=== PATIENT | male | born 1935 | race Two or more races ===

== ENCOUNTER 2019-01-23 07:52 | Outpatient (CLI) | payer OTHER | END 2019-01-23 15:51 | disposition home or self-care (01) | LOC: TOM 07:52 | DX: N40.0 Benign prostatic hyperplasia without lower urinary tract symptoms (principal) ==

== ENCOUNTER 2021-01-17 07:08 | Day surgery (SDC) | payer OTHER | END 2021-01-17 12:10 | disposition home or self-care (01) | LOC: AMB-ENDOS 07:08 | PROVIDERS: ATTEND Surgery | DX: D12.2 Benign neoplasm of ascending colon (principal); D12.4 Benign neoplasm of descending colon; D12.5 Benign neoplasm of sigmoid colon; D12.8 Benign neoplasm of rectum; Z20.822 Contact with and (suspected) exposure to COVID-19 ==